=== PATIENT | male | born 1945 | race Caucasian/White ===

== ENCOUNTER 2018-01-31 14:56 | Inpatient (IN) | payer MEDICARE, BC ==
[~2018-01-31] VITALS: Ht 185.4 cm; Wt 86.6 kg
[~2018-01-31 14:56] MED LIST: ASPIRIN81 MG PO; CIALIS5 MG PO; LOPRESSOR25 MG PO; METOCLOPRAMIDE10 MG PO; MILK THISTLE PO; MULTIVITAMINS1 EAC2 PO; OMEPRAZOLE40 MG PO; REGLAN10 MG PO; TUMERIC/CURCUMIN PO; ZOCOR20 MG PO; fish oil PO; vitamin d PO
--- NOTE | 2018-01-31 16:03 | Diagnostic Imaging Report ---
PROCEDURE: A single AP view of the chest. COMPARISON: None. INDICATIONS: STROKE PROTOCOL FINDINGS: Lines/tubes: None. Lungs: The lungs are well inflated and clear. There is no evidence of pneumonia or pulmonary edema. 1.0 cm nodular opacity in the right lower lung. Pleura: There is no pleural effusion or pneumothorax. Heart and mediastinum: The heart and the mediastinum are unremarkable. Bones: No acute bony abnormality. IMPRESSION: 1. No acute cardiopulmonary disease. 2. A 1.0 cm nodular opacity in the right lower lung is likely an artifact. Recommend dedicated PA and lateral chest radiograph when clinically feasible. Dictated by: Martin Sharp M.D. on 01/31/2018 at 16:04 Electronically approved by: Martin Sharp M.D. on 01/31/2018 at 16:04
--- NOTE | 2018-01-31 16:25 | Diagnostic Imaging Report ---
Exam: Head CT without contrast History: Trouble speaking, possible CVA Comparison studies: Head CT with/without contrast 02/23/2010 Technique: Axial images were obtained from the skull base to the vertex. Coronal and sagittal images reconstructed from the axial data. Intravenous contrast: None Findings: Scalp: No abnormalities. Bones: No fractures, blastic or lytic lesions. Mildly prominent. Ventricles: Mild compensatory dilatation. No hydrocephalus. Extra-axial spaces: No masses, no fluid collection. Parenchyma: No mass, acute hemorrhage or acute cortical vascular insults. There are confluent hypodensity throughout the supratentorial white matter which are nonspecific but most compatible with chronic small vessel ischemic changes. These changes have progressed from the previous 2010 exam and limit evaluation for acute subcortical ischemia. Chronic lacunar infarct centered in the genu of the left internal capsule as well as additional smaller chronic lacunar infarcts in the bilateral thalami are new from the previous exam. There are chronic lacunar infarcts in the deep left parietal and frontal periventricular, some of which were present on the previous exam. Sellar/suprasellar region: No abnormalities. Craniocervical junction: Patent foramen magnum. No Chiari one malformation. Paranasal sinuses: Persistent bilateral ethmoid opacification. Mucosal thickening in the left sphenoid sinus with new secretions could be correlated for acute on chronic sinusitis. Incidental findings: Atherosclerotic calcifications in the carotid siphons. IMPRESSION: 1. No mass, acute hemorrhage or acute cortical vascular insults. 2. Multiple chronic lacunar infarcts which are new from 2010 exam. 3. Moderate chronic small vessel ischemic changes and generalized volume loss have also progressed from the previous exam. 4. Nonspecific inflammatory changes in the paranasal sinuses as described. Brain MRI could be considered if there remains persistent concern for acute on chronic ischemia, Signed by: Dr. Nash Gibbs M.D. on 01/31/2018 4:21 PM
[2018-01-31 17:52] LABS: BASOPHILS % 0.7 % (0.0-1.0); EOSINOPHILS # (AUTO) 0.2 (0.0-0.4); EOSINOPHILS % 3.8 % (0.0-6.0); HEMATOCRIT 41.8 % (38.2-49.6); HEMOGLOBIN 14.3 g/dL (14.0-18.0); LYMPHOCYTES # (AUTO) 2.1 (1.0-3.2); LYMPHOCYTES % 35.8 % (18.0-39.1); MEAN CORPUSCULAR HEMOGLOBIN 31.5 pg (28-32); MEAN CORPUSCULAR HGB CONC 34.2 g/dL (31-35); MEAN CORPUSCULAR VOLUME 92.1 fL (81-99); MONOCYTES # (AUTO) 0.6 (0.2-0.8); MONOCYTES % 9.8 % (4.4-11.3); NEUTROPHILS # (AUTO) 2.8 (2.1-6.9); NEUTROPHILS % 49.2 % (38.7-80.0); PLATELET COUNT 210 x10e3/uL (140-360); RED BLOOD COUNT 4.54 x10e6/uL (4.3-5.7)
[2018-01-31 17:54] LABS: CLARITY,URINE CLEAR (CLEAR); COLOR,URINE YELLOW (YELLOW)
[2018-01-31 17:55] LABS: BILIRUBIN,URINE NEGATIVE (NEGATIVE); KETONES,URINE NEGATIVE (NEGATIVE); LEUKOCYTE ESTERASE ,URINE NEGATIVE (NEGATIVE); NITRITE,URINE NEGATIVE (NEGATIVE); PROTEIN,URINE DIPSTICK NEGATIVE (NEGATIVE); URINE UROBILINOGEN 0.2 mg/dL (0.2 - 1)
[2018-01-31 18:01] LABS: AMMONIA 31 UG/DL (31-123); INR 1.16; PROTHROMBIN TIME 13.9 seconds (11.9-14.5)
[2018-01-31 18:03] LABS: PARTIAL THROMBOPLASTIN TIME 28.5 seconds (23.8-35.5)
[2018-01-31 18:05] LABS: MUCUS,URINE RARE (RARE); RBC,URINE 0-5 /HPF (0-5); WBC,URINE (MAN) 0-5 /HPF (0-5)
[2018-01-31 18:10] LABS: ALANINE AMINOTRANSFERASE 13 IU/L (0-55); ALBUMIN 3.7 g/dL (3.5-5.0); ALBUMIN/GLOBULIN RATIO 1.1 (0.8-2.0); ALKALINE PHOSPHATASE 88 IU/L (40-150); ANION GAP 11.9 mmol/L (8-16); BLOOD UREA NITROGEN 13 mg/dL (7-26); BUN/CREATININE RATIO 12 (6-25); CALCIUM 9.2 mg/dL (8.4-10.2); CARBON DIOXIDE 27 mmol/L (22-29); CHLORIDE 105 mmol/L (98-107); CREATINE KINASE 66 IU/L (30-200); CREATININE, SERUM 1.05 mg/dL (0.72-1.25); EST GLOMERULAR FILTRATION RATE > 60 ML/MIN (60-); GLUCOSE 85 mg/dL (74-118); POTASSIUM 3.9 mmol/L (3.5-5.1); SODIUM 140 mmol/L (136-145)
[2018-01-31 18:15] LABS: B-TYPE NATRIURETIC PEPTIDE2 < 10.0 pg/mL (0-100)
[2018-01-31 18:46] LABS: AMPHETAMINES SCREEN,URINE NEGATIVE (NEGATIVE); BENZODIAZEPINES SCREEN,URINE NEGATIVE (NEGATIVE); PHENCYCLIDINE SCREEN,URINE NEGATIVE (NEGATIVE)
[2018-01-31] MEDS ORDERED: PLAVIX75 MG PO (19:08)
[2018-01-31] MEDS ORDERED: DOXEPIN HCL25 MG PO (19:08)
[2018-01-31] MEDS ORDERED: LORAZEPAM INJ 2 MG/ML VIAL IV ONE (19:15)
--- OUTSIDE RECORDS SUMMARY | 2018-01-31 19:26 | XMS REPORT ---
Author Author [facility] Address Unknown Phone Unavailable Care Team Providers [facility] Worker Name Role Phone RUPERTO OBREGON Unavailable Unavailable Problems This patient has no known problems. Allergies, Adverse Reactions, Alerts This patient has no known allergies or adverse reactions. Medications This patient has no known medications. Results Test Description Test Time Test Comments Text Results Atomic Results Result Comments CHEST SINGLE (PORTABLE) [place] [address] Patient Name: PHANI DELGADO MR #: [id number] : 1945 Age/Sex: 72/M Req #: [id number] Adm Physician: Ordered by: MACRINA CARO CLOTH GRADER Report #: [id number] Location: ER Room/Bed: Procedure: [id number] DX/CHEST SINGLE (PORTABLE) Exam Date: 01/31/18 Exam Time: 1552 REPORT STATUS: Signed PROCEDURE: A single AP view of the chest. COMPARISON: None. INDICATIONS: STROKE PROTOCOL FINDINGS: Lines/tubes: None. Lungs: The lungs are well inflated and clear. There is no evidence of pneumonia or pulmonary edema. 1.0 cm nodular opacity in the right lower lung. Pleura: There is no pleural effusion or pneumothorax. Heart and mediastinum: The heart and the mediastinum are unremarkable. Bones: No acute bony abnormality. IMPRESSION: 1. No acute cardiopulmonary disease. 2. A 1.0 cm nodular opacity in the right lower lung is likely an artifact. Recommend dedicated PA and lateral chest radiograph when clinically feasible. Dictated by: David Sharp M.D. on 01/31/2018 at 16:04 Electronically approved by: David Sharp M.D. on 01/31/2018 at 16:04 Dictated By: DAVID SHARP MD 1604 Transcribed By: TASNEEM on 01/31/18 1604 COPY TO: MACRINA CARO NP CT BRAIN WO [place] [address] Patient Name: PHANI DELGADO MR #: [id number] : 1945 Age/Sex: 72/M Req # : [id number] Adm Physician: Ordered by: MACRINA CARO CLOTH GRADER Report #: [id number] Location: ER Room/Bed: Procedure: [id number] CT/CT BRAIN WO Exam Date: 01/31/18 Exam Time: 1545 REPORT STATUS: Signed Exam: Head CT without contrast History: Trouble speaking, possible CVA Comparison studies: Head CT with/without contrast 02/23/2010 Technique: Axial images were obtained from the skull base to the vertex. Coronal and sagittal images reconstructed from the axial data. Intravenous contrast: None Findings: Scalp: No abnormalities. Bones: No fractures, blastic or lytic lesions. Mildly prominent. Ventricles: Mild compensatory dilatation. No hydrocephalus. Extra-axial spaces : No masses, no fluid collection. Parenchyma: No mass, acute hemorrhage or acute cortical vascular insults. There are confluent hypodensity throughout the supratentorial white matter which are nonspecific but most compatible with chronic small vessel ischemic changes. These changes have progressed from the previous 2010 exam and limit evaluation for acute subcortical ischemia. Chronic lacunar infarct centered in the genu of the left internal capsule as well as additional smaller chronic lacunar infarcts in the bilateral thalami are new from the previous exam. There are chronic lacunar infarcts in the deep left parietal and frontal periventricular, some of which were present on the previous exam. Sellar/suprasellar region: No abnormalities. Craniocervical junction: Patent foramen magnum. No Chiari one malformation. Paranasal sinuses: Persistent bilateral ethmoid opacification. Mucosal thickening in the left sphenoid sinus with new secretions could be correlated for acute on chronic sinusitis. Incidental findings: Atherosclerotic calcifications in the carotid siphons. IMPRESSION: 1. No mass, acute hemorrhage or acute cortical vascular insults. 2. Multiple chronic lacunar infarcts which are new from 2010 exam. 3. Moderate chronic small vessel ischemic changes and generalized volume loss have also progressed from the previous exam. 4. Nonspecific inflammatory changes in the paranasal sinuses as described. Brain MRI could be considered if there remains persistent concern for acute on chronic ischemia, Signed by: Dr. Josemanuel Gibbs M.D. on 01/31/2018 4:21 PM Dictated By: JOSEMANUEL GIBBS MD 1621 Transcribed By: JUAN on 01/31/18 1621 COPY TO: MACRINA CARO NP
--- NOTE | 2018-01-31 21:38 | Diagnostic Imaging Report ---
Examination: MRI BRAIN WITHOUT CONTRAST History: New onset slurred speech. Comparison studies: Head CT from earlier today. Technique: Sagittal T2; axial DWI, FLAIR, GRE or SWI, T1, Coronal FLAIR. Intravenous contrast: None Findings: Scalp: No abnormal signal. No masses. Bone marrow: Normal in signal intensity. Brain volume: Mild volume loss. Ventricles: No hydrocephalus. Extra-axial spaces: No abnormalities. Parenchyma: Again demonstrated are patchy and confluent areas of T2/FLAIR hyperintensity in the periventricular and subcortical and pontine white matter, nonspecific. Chronic lacunar infarcts are demonstrated in the left deep and periventricular white matter, bilateral thalami, and genu of the left internal capsule. There is a new acute infarct in the left periventricular white matter without associated hemorrhage. No masses, hemorrhage, or chronic cortical based vascular insults. Suprasellar and sellar region: No abnormalities. Craniocervical junction: No abnormalities. The foramen magnum is patent. No Chiari malformations. Vessels: Normal flow-voids in the arteries and sinuses. Additional findings:Complete opacification of the bilateral ethmoid air cells. IMPRESSION: Acute nonhemorrhagic lacunar infarct in the left periventricular white matter. Moderate chronic microvascular ischemic change. Chronic lacunar infarcts, as above. Dr. Rosi Baxter discussed acute findings with Dr. Martínez on 01/31/2018 at 2132 hours. Signed by: Dr. Rosi Baxter M.D. on 01/31/2018 9:34 PM
--- NOTE | 2018-01-31 22:53 | Diagnostic Imaging Report ---
Examination: Cervical and Intracranial CT Angiogram with Contrast History: Aphasia since Tuesday. Comparison studies: None Technique: Axial images were obtained from the thoracic inlet. Coronal and sagittal images reconstructed from the axial data. Intravenous contrast: 100 mL of Isovue 370. Degree of stenosis at the carotid bulbs, if present, will be calculated using NASCET criteria where the smallest diameter at the location of stenosis is compared to the diameter of the more distal non-diseased vessel lumen. Findings: CTA neck: Aortic arch and major vessels: Patent. Nonstenotic soft and calcific plaque. Common carotid arteries: Patent Cervical carotid bifurcations: Right: Patent. Nonstenotic punctate calcification. Left :Patent. Nonstenotic soft plaque. Internal carotid arteries: Right: Patent. Left: Patent. Vertebral arteries: Patent. CTA head: Internal carotid arteries: Patent. Nonstenotic atherosclerotic calcification of the cavernous, ophthalmic, clinoid and communicating segments. Anterior cerebral arteries: Patent.. Middle cerebral arteries: Patent.. Posterior cerebral arteries: Patent. Vertebro-basilar system: Patent. Anatomical variants: Anterior communicating artery :Present Posterior communicating arteries: Patent on the right. Not visualized on the left. Vertebral arteries: Codominant. IMPRESSION: 1. No intracranial or cervical arterial stenosis or occlusio or vascular malformation. 2. Nonstenotic plaque, as detailed above. Signed by: Dr. Rosi Baxter M.D. on 01/31/2018 10:49 PM
[2018-01-31] MEDS ORDERED: SODIUM CHLORIDE 0.9% 50ML 50 ML ONE (23:06)
[2018-01-31] MEDS ORDERED: IOPAMIDOL 370 MG/ML 200 ML INFUS..BTL INJ ONE (23:06)
[2018-02-01] VITALS (15 sets, daily range): BP systolic 123–137; BP diastolic 72–86
[2018-02-01 06:08] LABS: BASOPHILS % 0.3 % (0.0-1.0); EOSINOPHILS # (AUTO) 0.1 (0.0-0.4); EOSINOPHILS % 1.6 % (0.0-6.0); HEMATOCRIT 40.3 % (38.2-49.6); HEMOGLOBIN 13.9 g/dL (14.0-18.0); LYMPHOCYTES # (AUTO) 1.2 (1.0-3.2); LYMPHOCYTES % 18.8 % (18.0-39.1); MEAN CORPUSCULAR HEMOGLOBIN 31.5 pg (28-32); MEAN CORPUSCULAR HGB CONC 34.5 g/dL (31-35); MEAN CORPUSCULAR VOLUME 91.4 fL (81-99); MONOCYTES # (AUTO) 0.5 (0.2-0.8); MONOCYTES % 7.9 % (4.4-11.3); NEUTROPHILS # (AUTO) 4.6 (2.1-6.9); NEUTROPHILS % 71.1 % (38.7-80.0); PLATELET COUNT 180 x10e3/uL (140-360); RED BLOOD COUNT 4.41 x10e6/uL (4.3-5.7); RED CELL DISTRIBUTION WIDTH 13.1 % (11.7-14.4)
[2018-02-01 06:43] LABS: ALANINE AMINOTRANSFERASE 14 IU/L (0-55); ALBUMIN 3.7 g/dL (3.5-5.0); ALBUMIN/GLOBULIN RATIO 1.4 (0.8-2.0); ALKALINE PHOSPHATASE 79 IU/L (40-150); ANION GAP 10.6 mmol/L (8-16); BLOOD UREA NITROGEN 11 mg/dL (7-26); BUN/CREATININE RATIO 13 (6-25); CALCIUM 9.2 mg/dL (8.4-10.2); CARBON DIOXIDE 25 mmol/L (22-29); CHLORIDE 106 mmol/L (98-107); CREATININE, SERUM 0.82 mg/dL (0.72-1.25); EST GLOMERULAR FILTRATION RATE > 60 ML/MIN (60-); GLUCOSE 120 mg/dL (74-118); POTASSIUM 3.6 mmol/L (3.5-5.1); SODIUM 138 mmol/L (136-145)
[2018-02-01] MEDS ORDERED: ONDANSETRON HCL INJ 2 MG/ML VIAL ONE (14:30)
[2018-02-01] MEDS ORDERED: ONDANSETRON HCL INJ 2 MG/ML VIAL IV ONE (14:33)
[2018-02-01] MEDS ORDERED: DOXEPIN HCL 25 MG CAP PO PRN (14:45)
[2018-02-01] MEDS ORDERED: METOCLOPRAMIDE HCL 10 MG TAB PO PRN (14:45)
[2018-02-01] MEDS ORDERED: MULTIVITAMINS/MINERALS TAB PO SCH (17:00)
[2018-02-01] MEDS ORDERED: PANTOPRAZOLE SOD 40 MG TABEC PO SCH (17:00)
[2018-02-01] MEDS ORDERED: METOPROLOL TARTRATE 25 MG TAB PO SCH (17:00)
[2018-02-01] MEDS ORDERED: ASPIRIN PO SCH (17:00)
[2018-02-01] MEDS ORDERED: DIPYRIDAMOLE PO SCH (17:00)
[2018-02-01] MEDS ORDERED: [UNRECOGNIZED DRUG - OTHER] PO SCH (17:00)
[2018-02-01 17:04] LABS: CHOL/HDL RATIO 4.2 (3.9-4.7)
[2018-02-01] MEDS ORDERED: AGGRENOX 25 MG-1 CAP PO (18:17)
--- NOTE | 2018-02-01 18:40 | Cardiology Report ---
DATE OF STUDY: DOPPLER SCAN OF CAROTIDS ARTERIES Left carotid artery shows velocity of 1.4 meters per second involving the left common carotid artery. There is, however, no high-grade stenosis seen. Left vertebral flow appears to be antegrade. Right carotid artery shows velocity of 1.4 meters per second. Once again, there is no high-grade stenosis seen. Right vertebral flow appears to be antegrade. CONCLUSIONS 1. Mildly increased velocity in both common carotid arteries bilaterally with velocity of 1.4 meters per second, but no high-grade stenosis well visualized. 2. Mild intimal thickening and plaquing bilaterally. 3. Vertebral flow appears to be in normal direction bilaterally. Job#: [id number] RI cc: HERNAN CRUZ MD
--- NOTE | 2018-02-01 18:45 | Cardiology Report ---
DATE OF STUDY: February 01, 2018 ECHOCARDIOGRAM M-MODE: Top normal aortic root. Normal left ventricular contractility. Normal mitral and aortic valves. No pericardial effusion. SECTOR SCAN: Top normal aortic root measuring 3.7 cm. Normal left ventricular wall thickness and contractility. Ejection fraction is approximately 55%. Mitral, aortic and tricuspid valves are grossly normal. There is no pericardial effusion. CARDIAC DOPPLER STUDY WITH COLOR: Trace tricuspid regurgitation. CONCLUSIONS 1. No evidence of intracardiac thrombi or masses. 2. No evidence of atrial septal defect or ventricular septal defect. 3. Left ventricular ejection fraction is approximately 55%. 4. Top normal aortic root size measuring 3.7 cm. Job#: [id number] MN cc:JOSEMANUEL GOULD DO
--- NOTE | 2018-02-01 18:51 | Discharge Summary ---
CLINICAL HISTORY: This is a 72-year-old white man with a history of aphasia from old lacunar CVA back in July 2017 admitted via the emergency room because of slight worsening in the aphasia in the sense then he is less able to even find the word as opposed to always finding the wrong words. He denies any motor or sensory deficits. Has had no difficulty eating or swallowing. Workup in the emergency room indicated that he may have had a new thalamic lacunar infarct bilaterally. However, he denies any sensory deficits. Neurology consultation was obtained with Dr. Rasheeda Vickers, who felt the patient may benefit from switching Plavix to Aggrenox. Speech therapy was recommended. However, the patient and were anxious for discharge, and had refused to have this done. Apparently, they are doing speech therapy at home, and has been doing so ever since the recent stroke back in July of 2017. The patient was given a prescription for Aggrenox 25 per 200 mg 1 capsule b.i.d. I left it up to them whether to switch from Plavix or not to switch. I recommended continued followup with Dr. Ariza, as well as Dr. Nash Waterman or see me as needed. Other medications remained sustained, namely atorvastatin and metoprolol. He will continue to take Nexium, multivitamins, and possible Reglan as needed. DISCHARGE DIAGNOSES: The same as on admission. JEMIMA HERNANDEZ MD Job#: [id number] RI cc:MD NASH LUND DO
[2018-02-01] MEDS ORDERED: SIMVASTATIN 40 MG TAB PO SCH (21:00)
[2018-02-01] MEDS ORDERED: SIMVASTATIN 20 MG TAB PO SCH ×2 (21:00)
[2018-02-01] MEDS ORDERED: CLOPIDOGREL BISULFATE 75 MG TAB PO SCH (21:00)
--- NOTE | 2018-02-01 21:12 | History and Physical ---
CLINICAL HISTORY: This is 72-year-old white man, status post previous lacunar infarct, admitted via the emergency room because of slight worsening of aphasia. Workup in the emergency room indicated that perhaps he has had further new infarct in the thalamic region, however, the patient is not complaining of any sensory deficits. PAST MEDICAL HISTORY: Remarkable for hypertension, hyperlipidemia, rash as well as gastroesophageal reflux. MEDICATIONS: Included: 1. Doxepin, which has been discontinued. 2. Metoprolol tartrate 25 mg b.i.d. 3. Multivitamins. 4. Simvastatin 20 mg nightly. 5. Pantoprazole 40 mg b.i.d. 6. Reglan 10 mg p.o. every day. 7. Plavix 75 mg every day. PAST MEDICAL HISTORY: Otherwise noncontributory. PERSONAL AND SOCIAL HISTORY: Denies smoking, drinking. REVIEW OF SYSTEMS: Noncontributory. PHYSICAL EXAMINATION: GENERAL: He is alert, coherent. His speaks for him. CARDIAC: Jugular veins are not distended. S1 and S2 are regular. There is no appreciable murmur. LUNGS: Clear. ABDOMEN: Soft. Bowel sounds are present. EXTREMITIES: Showed no cyanosis, clubbing, edema. LABORATORY STUDIES: The echocardiogram showed normal ejection fraction of 55% without any intracardiac thrombi or masses, no definite ASD or VSD. Doppler scan of carotid was negative. CT scan, MRI, CT angiogram showed mainly old lacunar infarct in the genu area in the left internal capsule as well as in the deep parietal and frontal region on the left side. There is, however, new stroke in the thalamic region bilaterally. IMPRESSION: 1. Mainly old white matter stroke causing expressive aphasia with possible slight worsening this time. The last stroke was evaluated by Dr. Ariza on an outpatient basis. 2. Hypertension, controlled. 3. Hyperlipidemia. 4. Gastroesophageal reflux. RECOMMENDATION: Hospitalization, consult neurology. Job#: [id number] cc:MD JOSEMANUEL LUND DO
--- NOTE | 2018-02-02 13:49 | Consultation ---
DATE OF CONSULTATION: February 01, 2018 NEUROLOGY CONSULTATION HISTORY OF PRESENT ILLNESS: Mr. Doyle is a 72-year-old wnigt-zewe-zhubknah man with past medical history significant for hypertension, hyperlipidemia, and prior stroke with residual expressive aphasia who presented to [facility] on January 31 2018 with worsened aphasia. On the evening of January 29, 2018, the patient's noticed worsening expressive aphasia and stuttering. Neither the patient nor his endorse a visual field cut or other disturbance, dysarthria, facial droop, hemiparesis, hemihypesthesia, impairment of gait or balance, dizziness, or confusion. Mr. Doyle's suggested taking him to an emergency center for further evaluation, but the patient refused. On the evening of January 31, 2018, the patient finally did agree with his 's suggestion of going to an emergency center for further evaluation. Upon presentation in the emergency center at [facility], the patient's neurological examination was significant for expressive aphasia. No other neurological deficits were noted. A CT of the brain without contrast was performed, and it did not show evidence of recent large territorial ischemia, hemorrhage, mass or mass affect. A CTA of the brain and neck was performed and was normal. Mr. Doyle was admitted to [facility] for further evaluation. As stated above, the patient experienced a prior stroke on August 15, 2017 characterized by expressive aphasia only. While in the hospital, Mr. Doyle reportedly underwent a complete stroke evaluation. Upon discharge from the hospital, treatment with aspirin 81 mg by mouth daily was discontinued and replaced with Plavix 75 mg by mouth daily. All other home medications were continued. Mr. Doyle's reports the patient is compliant with his medications. Following his prior stroke, the patient received speech therapy for approximately one month. Once he was discharged from speech therapy, the patient continued to perform the exercises given him by the speech therapist at home. Despite this, Mr. Doyle continued to have mild word finding difficulties. REVIEW OF SYSTEMS: Expressive aphasia. Otherwise the 12 point review of systems is negative. PAST MEDICAL HISTORY: Hypertension, hyperlipidemia, gastroesophageal reflux disease, prior stroke with residual expressive aphasia. PAST SURGICAL HISTORY: Inguinal hernia repair x2. PAST HOSPITALIZATIONS: For surgeries and procedures as listed, stroke. FAMILY HISTORY: The patient's paternal and maternal grandparents are . Their medical histories are unknown. The patient's father and mother are . Their medical histories are unknown. The patient had one brother who is from liver disease. The patient has one sister who is alive. He is not in touch with his sister and does not know her medical history. Mr. Doyle jamison one son who is healthy. SOCIAL HISTORY: The patient is . Mr. Doyle attended some college. He is retired. The patient does not report current or prior tobacco, alcohol, or recreational drug use. HOME MEDICATIONS: Plavix 75 mg by mouth at bedtime daily, doxepin 25 mg by mouth at bedtime as needed, metoclopramide 10 milligrams by mouth as needed, metoprolol tartrate 25 mg by mouth twice daily, multivitamins 1 tablet by mouth daily, omeprazole 40 mg by mouth twice daily, simvastatin 20 mg by mouth at bedtime daily, milk thistle, turmeric, fish oil, vitamin D. ALLERGIES: NO KNOWN DRUG ALLERGIES. NO KNOWN FOOD ALLERGIES. NO KNOWN ALLERGIES TO LATEX. NO KNOWN ALLERGY TO IODINATED CONTRAST OR OTHER CONTRAST MATERIALS. PHYSICAL EXAMINATION: VITAL SIGNS: Height 73 inches. Weight 191 pounds. BMI 35.2 kg per meter squared. Blood pressure 133/79 mmHg. Pulse 66 beats per minute. Respiratory rate 18 breaths per minute. Oxygen saturation 98% on room air. GENERAL: The patient is awake and alert. Does not appear distressed. HEENT: Normocephalic and atraumatic. Pupils are equal, round and reactive to light. Moist mucous membranes. NECK: Supple. No appreciable thyromegaly. No appreciable carotid bruits. CARDIOVASCULAR: S1 and S2. Regular rate and rhythm. No murmurs, rubs or gallops. RESPIRATORY: Clear to auscultation bilaterally. No wheezes, rhonchi or rales. EXTREMITIES: The skin is warm and dry. No clubbing, cyanosis or edema. The posterior tibial and dorsalis pedis pulses are 2+ and symmetric. SKIN: No rashes or lesions. NEUROLOGIC: Memory/attention: The patient is awake and alert, aphasic. CRANIAL NERVES: Cranial nerve I: Not tested. Cranial nerves II, III, IV, : Pupils are equal and round, react briskly to light (from 4 mm to 2 mm). Extraocular movements intact. No nystagmus. Cranial nerve V: Sensation to light touch and pinprick is intact in the bilateral V1 through V3 distributions. Strength of the temporalis and masseter muscles is within normal limits. Cranial nerve VII: The face is symmetric, as are all facial movements. Strength is within normal limits. Cranial nerve VIII: Hearing is intact to finger rub bilaterally. Cranial nerve IX and X: The soft palate elevates equally and symmetrically. Cranial nerve XI: Normal strength of the bilateral sternocleidomastoid and trapezius muscles. Cranial nerve XII: The tongue protrudes midline and moves symmetrically from side to side. STRENGTH: Bulk is normal, and strength is 5/5 in the bilateral deltoids, biceps, triceps, wrist flexors and extensors, finger flexors and extensors, intrinsic hand muscles, hip flexors, knee flexors and extensors, ankle dorsiflexion and plantar flexion, and intrinsic foot muscles. Tone is normal. DTRs: Deep tendon reflexes are 2+ and symmetric at the triceps, biceps, brachioradialis, patellas, and Achilles. Plantar responses are flexor bilaterally. Absent clonus. SENSATION: Intact to light touch and pinprick in both arms and both legs. CEREBELLAR: Ntyyli-vitg-ovrmqe movements are intact without dysmetria or other impairment. Unable to assess heel-portillo movements or rapid alternating movements secondary to receptive aphasia. GAIT: Deferred. SPEECH: Spontaneous speech is moderately dysarthric with mixed expressive and receptive aphasia. INVOLUNTARY MOVEMENTS: None. PRONATOR DRIFT: None. LABORATORY DATA: Sodium 138, potassium 3.6, chloride 106, carbon dioxide 25, anion gap 10.6, BUN 11, creatinine 0.82. Estimated GFR greater than 60. BUN to creatinine ratio 13. Glucose 120. Hemoglobin A1c 5.2. Calcium 9.2. Total bilirubin 0.7. AST 13, ALT 14. Alkaline phosphatase 79. Total protein 6.3. Albumin 3.7. Globulin 2.6. Albumin to globulin ratio 1.4. Ammonia 31. Creatinine kinase 66. CK-MB 1.30. Troponin I less than 0.001. B-natriuretic peptide less than 10.0. Total cholesterol 148. Triglycerides 133. LDL cholesterol 86. HDL cholesterol 35. The CBC with differential and platelets reveals a white blood cell count of 6.42 with a normal differential. The hemoglobin and hematocrit 13.9 and 40.3, respectively. Platelet count is 180.000. PT 13.9. INR 1.16. PTT 28.5. Urinalysis unremarkable. Urine drug screen is negative. DIAGNOSTIC STUDIES: CT of the brain without contrast on 01/31/2018: No mass, acute hemorrhage, or acute critical vascular insults. Multiple chronic lacunar infarcts which are new from 2010 exam. Moderate chronic small vessel ischemic changes and generalized volume loss have also progressed from the previous exam. Nonspecific inflammatory changes in the paranasal sinuses as described. MRI of the brain without contrast 01/31/2018: Acute lacunar infarct in the left periventricular white matter. Chronic lacunar infarcts in the left deep and periventricular white matter, bilateral thalamus and genu of the left internal capsule. Mild diffuse cerebral atrophy, appropriate for age. Moderate chronic small vessel ischemic disease. CTA of the brain and neck on 01/31/2018: There is no evidence of hemodynamically significant stenoses in either the intracranial or extracranial vasculature. ASSESSMENT AND PLAN: Mr. Doyle is a 72-year-old [id number] man with past medical history significant for hypertension, hyperlipidemia, and prior stroke with residual expressive aphasia admitted to [facility] with a new lacunar infarct in the left gabriela-ventricular white matter. The patient's neurological examination is significant for moderate dysarthria with mixed expressive and receptive aphasia. The patient's laboratory data and diagnostic studies have been reviewed and are documented above. RECOMMENDATIONS: 1. Speech therapy consult has been ordered and is pending. 2. The patient experienced this most recent stroke while on Plavix 75 mg by mouth daily. Plavix will be discontinued and replaced with Aggrenox 1 capsule by mouth twice daily for stroke prophylaxis. 3. The patient's blood pressure goal is less than 140/90 mmHg. The patient's blood pressures are at goal. Continue with current antihypertensive medications. 4. The patient's goal total cholesterol is less than 200 with a LDL of less than 70. The patient's lipid panel demonstrated a total cholesterol of less than 200 with a LDL of 86. The patient's home medication of simvastatin will be increased from 20 mg to 40 mg by mouth at bedtime daily. 5. The patient's goal hemoglobin A1c is 7.0. The patient's hemoglobin A1c is 5.2. No further evaluation or treatment is needed. 6. Gastrointestinal prophylaxis: Protonix 40 mg by mouth twice daily. 7. DVT prophylaxis: Lovenox 40 mg subcutaneously daily. Thank you for this consultation. I will continue to follow this patient while he remains in the hospital. TIME SPENT: 70 minutes. Job#: [id number] GH [id number]
== END 2018-02-01 19:00 | disposition home or self-care (01) | DRG 66 ==
LOC: ER 14:56 → ERHOLD 18:47 → ICU 02-01 03:31
PROVIDERS: ADMIT Internal Medicine Cardiovascular Disease; ATTEND Internal Medicine Cardiovascular Disease
DX: I63.30 Cerebral infarction due to thrombosis of unspecified cerebral artery (principal); I69.820 Aphasia following other cerebrovascular disease; I10 Essential (primary) hypertension; K21.9 Gastro-esophageal reflux disease without esophagitis; I69.328 Other speech and language deficits following cerebral infarction
CPT/HCPCS: 36415; 70450; 70496; 70498; 70551; 71045; 80053; 80061; 80307; 81001; 82140; 82550; 82553; 83036; 83880; 84484; 85025; 85610; 85730; 93005; 93306; 93880; 95812; 97139; 99284; J2060; J2405; Q9967

== ENCOUNTER 2021-10-28 12:47 | Inpatient (IN) | payer MEDICARE, BC ==
[~2021-10-28] VITALS: Ht 182.9 cm; Wt 86.6 kg
[~2021-10-28 12:47] MED LIST changes: +AGGRENOX 25 MG-1 CAP PO; +DOXEPIN HCL25 MG PO; +PLAVIX75 MG PO
[2021-10-28] MEDS ORDERED: SODIUM CHLORIDE 0.9% 1000ML 1,000 ML IV ONE (13:15)
[2021-10-28] MEDS ORDERED: ACETAMINOPHEN 325 MG TAB PO ONE (13:15)
[2021-10-28 13:34] LABS: BASOPHILS % 0.3 % (0.0-1.0); EOSINOPHILS # (AUTO) 0.1 (0.0-0.4); EOSINOPHILS % 0.8 % (0.0-6.0); HEMATOCRIT 39.2 % (38.2-49.6); HEMOGLOBIN 12.8 g/dL (14.0-18.0); LYMPHOCYTES # (AUTO) 0.5 (1.0-3.2); LYMPHOCYTES % 6.9 % (18.0-39.1); MEAN CORPUSCULAR HEMOGLOBIN 32.2 pg (28-32); MEAN CORPUSCULAR HGB CONC 32.7 g/dL (31-35); MEAN CORPUSCULAR VOLUME 98.7 fL (81-99); MONOCYTES # (AUTO) 0.5 (0.2-0.8); MONOCYTES % 7.2 % (4.4-11.3); NEUTROPHILS # (AUTO) 6.1 (2.1-6.9); NEUTROPHILS % 84.7 % (38.7-80.0); PLATELET COUNT 222 x10e3/uL (140-360); RED BLOOD COUNT 3.97 x10e6/uL (4.3-5.7); RED CELL DISTRIBUTION WIDTH 13.4 % (11.7-14.4)
[2021-10-28 13:36] LABS: INR 1.06; PROTHROMBIN TIME 14.6 seconds (11.9-14.5)
[2021-10-28 13:37] LABS: PARTIAL THROMBOPLASTIN TIME 27.7 seconds (23.8-35.5)
[2021-10-28 14:39] LABS: CLARITY,URINE SL CLOUDY (CLEAR); COLOR,URINE STRAW (YELLOW); KETONES,URINE 2+ (NEGATIVE); LEUKOCYTE ESTERASE ,URINE NEGATIVE (NEGATIVE); NITRITE,URINE POSITIVE (NEGATIVE); PROTEIN,URINE DIPSTICK 1+ (NEGATIVE); URINE UROBILINOGEN 0.2 mg/dL (0.2 - 1)
[2021-10-28 14:51] LABS: ALBUMIN 3.2 g/dL (3.5-5.0); ANION GAP 10.2 mmol/L (8-16); CALCIUM 8.7 mg/dL (8.4-10.2); CREATININE, SERUM 0.9 mg/dL (0.72-1.25); POTASSIUM 4.2 mmol/L (3.5-5.1)
[2021-10-28 14:52] LABS: BACTERIA,URINE MANY /HPF; RBC,URINE 0-5 /HPF (0-5)
[2021-10-28 14:57] LABS: CREATINE KINASE MB 1.9 ng/mL (0-5.0)
[2021-10-28] MEDS ORDERED: KEFLEX125 MG/5 M PO (15:12)
[2021-10-28] MEDS ORDERED: ASPIRIN 81 MG CHEW TAB PO ONE (15:30)
[2021-10-28] MEDS ORDERED: SODIUM CHLORIDE FLUSH 10 ML SYR INJ PRN (15:30)
[2021-10-28] MEDS ORDERED: ONDANSETRON HCL INJ 2MG/ML 2ML 2 MG/ML VIAL IV PRN (15:30)
[2021-10-28] MEDS ORDERED: LORAZEPAM INJ 2 MG/ML VIAL IV ONE (15:45)
[2021-10-28] MEDS ORDERED: LORAZEPAM INJ 2 MG/ML VIAL ONE (15:56)
[2021-10-28] MEDS ORDERED: ZIPRASIDONE 20 MG VIAL IM ONE (16:00)
[2021-10-28 16:45] VITALS: BP 103/59
[2021-10-28 17:00] VITALS: BP 103/59
[2021-10-28] MEDS ORDERED: TADALAFIL5 MG (18:26)
[2021-10-28] MEDS ORDERED: DICYCLOMINE HCL20 MG PO (18:27)
[2021-10-28] MEDS ORDERED: OXYBUTYNIN CHLOR5 MG PO (18:28)
[2021-10-28] MEDS ORDERED: L-ARGININE500 MG (18:29)
[2021-10-28 20:00] VITALS: BP 124/71
[2021-10-28 21:00] VITALS: BP 124/71
[2021-10-29] VITALS (8 sets, daily range): BP systolic 134–148; BP diastolic 65–81
[2021-10-29] MEDS ORDERED: ACETAMINOPHEN 325 MG TAB PO PRN (01:30)
[2021-10-29] MEDS: SODIUM CHLORIDE 0.9% 1000ML 1,000 ML IV SCH ×2 (04:44→19:18)
[2021-10-29 06:06] LABS: BASOPHILS % 0.2 % (0.0-1.0); HEMOGLOBIN 11.8 g/dL (14.0-18.0); LYMPHOCYTES # (AUTO) 0.6 (1.0-3.2); LYMPHOCYTES % 9.8 % (18.0-39.1); MEAN CORPUSCULAR HEMOGLOBIN 31.8 pg (28-32); MEAN CORPUSCULAR HGB CONC 31.9 g/dL (31-35); MEAN CORPUSCULAR VOLUME 99.7 fL (81-99); MONOCYTES # (AUTO) 0.8 (0.2-0.8); MONOCYTES % 12.7 % (4.4-11.3); PLATELET COUNT 169 x10e3/uL (140-360); RED BLOOD COUNT 3.71 x10e6/uL (4.3-5.7); RED CELL DISTRIBUTION WIDTH 13.5 % (11.7-14.4)
[2021-10-29 07:04] LABS: ANION GAP 8.6 mmol/L (8-16); CALCIUM 8.6 mg/dL (8.4-10.2); CREATININE, SERUM 0.87 mg/dL (0.72-1.25); POTASSIUM 3.6 mmol/L (3.5-5.1)
[2021-10-29 07:36] LABS: CREATINE KINASE MB 1.3 ng/mL (0-5.0)
[2021-10-29] MEDS ORDERED: METOPROLOL TARTRATE 25 MG TAB PO SCH (09:00)
[2021-10-29] MEDS: ASPIRIN PO SCH ×2 (09:00→17:00)
[2021-10-29] MEDS: [UNRECOGNIZED DRUG - OTHER] PO SCH ×2 (09:00→17:00)
[2021-10-29] MEDS: PANTOPRAZOLE SOD 40 MG TABEC PO SCH ×2 (09:00→17:00)
[2021-10-29] MEDS: OXYBUTYNIN CHLORIDE 5 MG TAB PO SCH ×2 (09:00→17:00)
[2021-10-29] MEDS: DIPYRIDAMOLE PO SCH ×2 (09:00→17:00)
[2021-10-29] MEDS: CEFTRIAXONE 1 GM in SODIUM CHLORIDE 0.9% 50ML 50 ML IV SCH (11:41)
[2021-10-29] MEDS: METOPROLOL TARTRATE INJ 1 MG/ML VIAL IV SCH ×2 (12:11→21:45)
[2021-10-29] MEDS ORDERED: ACETAMINOPHEN 1000 MG/100 ML IV PRN (15:45)
[2021-10-29] MEDS: ENOXAPARIN 30 MG/0.3 ML SYR SC SCH (16:44)
[2021-10-29] MEDS: METOPROLOL TARTRATE 25 MG TAB PO SCH (17:00)
[2021-10-29] MEDS: SIMVASTATIN 20 MG TAB PO SCH (21:00)
[2021-10-30] VITALS (8 sets, daily range): BP systolic 105–151; BP diastolic 58–81
[2021-10-30] MEDS: METOPROLOL TARTRATE INJ 1 MG/ML VIAL IV SCH ×2 (05:58→12:24)
[2021-10-30 06:33] LABS: BASOPHILS % 0.1 % (0.0-1.0); HEMATOCRIT 35.7 % (38.2-49.6); HEMOGLOBIN 11.9 g/dL (14.0-18.0); LYMPHOCYTES # (AUTO) 0.7 (1.0-3.2); LYMPHOCYTES % 8.1 % (18.0-39.1); MEAN CORPUSCULAR HEMOGLOBIN 31.6 pg (28-32); MEAN CORPUSCULAR HGB CONC 33.3 g/dL (31-35); MEAN CORPUSCULAR VOLUME 94.7 fL (81-99); MONOCYTES # (AUTO) 0.9 (0.2-0.8); MONOCYTES % 10.2 % (4.4-11.3); NEUTROPHILS # (AUTO) 6.8 (2.1-6.9); NEUTROPHILS % 81.4 % (38.7-80.0); PLATELET COUNT 159 x10e3/uL (140-360); RED BLOOD COUNT 3.77 x10e6/uL (4.3-5.7); RED CELL DISTRIBUTION WIDTH 13.1 % (11.7-14.4)
[2021-10-30 07:16] LABS: ALBUMIN 2.7 g/dL (3.5-5.0); ALBUMIN/GLOBULIN RATIO 0.8 (0.8-2.0); ANION GAP 8.2 mmol/L (8-16); CALCIUM 8.2 mg/dL (8.4-10.2); CREATININE, SERUM 0.77 mg/dL (0.72-1.25); MAGNESIUM 1.8 MG/DL (1.3-2.1); POTASSIUM 3.2 mmol/L (3.5-5.1)
[2021-10-30] MEDS: DIPYRIDAMOLE PO SCH ×2 (09:00→17:00)
[2021-10-30] MEDS: [UNRECOGNIZED DRUG - OTHER] PO SCH ×2 (09:00→17:00)
[2021-10-30] MEDS: ASPIRIN PO SCH ×2 (09:00→17:00)
[2021-10-30] MEDS: PANTOPRAZOLE SOD 40 MG TABEC PO SCH ×2 (09:22→19:01)
[2021-10-30] MEDS: METOPROLOL TARTRATE 25 MG TAB PO SCH ×2 (09:35→19:01)
[2021-10-30] MEDS: CEFTRIAXONE 1 GM in SODIUM CHLORIDE 0.9% 50ML 50 ML IV SCH (09:37)
[2021-10-30] MEDS: OXYBUTYNIN CHLORIDE 5 MG TAB PO SCH ×2 (09:39→19:01)
[2021-10-30] MEDS: SODIUM CHLORIDE 0.9% 1000ML 1,000 ML IV SCH ×2 (09:59→20:39)
[2021-10-30] MEDS ORDERED: POTASSIUM CHLORIDE 10MEQ EA PO ONE (11:00)
[2021-10-30] MEDS: ENOXAPARIN 30 MG/0.3 ML SYR SC SCH (19:01)
[2021-10-30] MEDS: SIMVASTATIN 20 MG TAB PO SCH (20:39)
[2021-10-31] VITALS: BP 127/81
[2021-10-31 04:00] VITALS: BP 124/65
[2021-10-31] MEDS ORDERED: METOPROLOL TART25 MG PO (08:11)
[2021-10-31 08:14] VITALS: BP 123/68
== END 2021-10-31 09:00 | disposition home or self-care (01) | DRG 872 ==
LOC: ER 13:01 → ERHOLD 15:34 → MED/SURG3 16:56
PROVIDERS: ADMIT Internal Medicine; ATTEND Internal Medicine
DX: A41.9 Sepsis, unspecified organism (principal); N39.0 Urinary tract infection, site not specified; I47.2 Ventricular tachycardia; E86.0 Dehydration; I95.1 Orthostatic hypotension; I69.320 Aphasia following cerebral infarction; I10 Essential (primary) hypertension; K21.9 Gastro-esophageal reflux disease without esophagitis; E78.00 Pure hypercholesterolemia, unspecified; Z82.49 Family history of ischemic heart disease and other diseases of the circulatory system; E78.5 Hyperlipidemia, unspecified; I49.3 Ventricular premature depolarization; B96.1 Klebsiella pneumoniae [K. pneumoniae] as the cause of diseases classified elsewhere; Z20.822 Contact with and (suspected) exposure to COVID-19
CPT/HCPCS: 36415; 70450; 71045; 80048; 80053; 81001; 82550; 82553; 82948; 83605; 83735; 84484; 85025; 85610; 85730; 87040; 87086; 87186; 93005; 93306; 99251; 99284; J0696; J1650; J2060; J3486; J7030; U0002